=== PATIENT | female | born 1950 | race Two or more races ===

== ENCOUNTER → 2025-01-09 | Outpatient (CLI) | payer MEDICARE, MEDICAID, SELFPAY ==
--- NOTE | 2025-01-09 11:20 | XR_ITS ---
Examination: Knee, left , 3 views Technique: Knee AP, lateral, oblique 3 views Date and time of exam: January 09, 2025 1132 hours INDICATIONS: Chronic knee pain beginning 2 years ago. FINDINGS: Advanced narrowing [id number] medial joint space left knee Significant osteoarthritis patellofemoral joint No fracture Severe osteopenia IMPRESSION: Advanced narrowing [id number] medial joint space left knee
== END | disposition home or self-care (01) ==
LOC: SDIM 11:00
PROVIDERS: PCP Physician Assistant; Referring Provider Physician Assistant; Visit Provider Physician Assistant
DX: M25.862 Other specified joint disorders, left knee (principal)
CPT/HCPCS: 73562